=== PATIENT | male | born 1960 | race Caucasian/White ===

== ENCOUNTER 2017-09-11 12:15 | Emergency (ER) | payer BC ==
[~2017-09-11] VITALS: Ht 188 cm; Wt 175.3 kg
[~2017-09-11 12:15] MED LIST: DIOVAN HCT 1601 EAC1 PO; LO-DOSE ASPIRIN81 M2 PO
[2017-09-11 12:54] LABS: BASOPHIL (%) 0.9 % (0-1); BASOPHIL COUNT 0.1 K/uL (0-0.1); EOSINOPHIL (%) 5.7 % (0-5); EOSINOPHIL COUNT 0.6 K/uL (0-0.3); HEMATOCRIT 41.4 % (38.0-50.0); IMMATURE GRANULOCYTE (%) 1.2 % (0.0-0.7); LYMPHOCYTE (%) 18.5 % (15-42); LYMPHOCYTE COUNT 1.9 K/uL (1.0-2.8); MCH 31.6 PG (29.0-34.0); MCHC 33.8 G/DL (30.0-36.0); MCV 93.5 FL (86-99); MONOCYTE (%) 7.8 % (3-12); MONOCYTE COUNT 0.8 K/uL (0-0.8); NEUTROPHIL (%) 65.9 % (45-76); NEUTROPHIL COUNT 6.8 K/uL (1.8-6.4); PLATELET COUNT 216 K/uL (156-360); RBC DIS.WIDTH-CV 13.3 % (11.8-14.6); RBC DIS.WIDTH-SD 45.6 % (39-53); RED BLOOD COUNT 4.43 M/uL (4.00-5.50); WHITE BLOOD COUNT 10.3 K/uL (4.1-10.2)
[2017-09-11 13:15] LABS: TROP-I INTERPRETATION NEGATIVE; TROPONIN-I < 0.01 ng/mL (0.0-0.30)
[2017-09-11 13:21] LABS: CHLORIDE 102 mEq/L (99-109); POTASSIUM 3.7 mEq/L (3.7-5.4); SODIUM 140 mEq/L (136-147)
[2017-09-11 13:23] LABS: GLUCOSE 82 mg/dL (70-99)
[2017-09-11 13:27] LABS: CREATININE 0.8 mg/dL (0.6-1.3); GFR ESTIMATE (CALCULATED) > 59 mL/min/ (58.99-99999)
[2017-09-11 13:28] LABS: UREA NITROGEN (BUN) 13 mg/dL (9-23)
[2017-09-11 15:10] VITALS: BP 168/112
== END 2017-09-11 15:15 | disposition home or self-care (01) ==
LOC: EME 12:15
PROVIDERS: Emergency Medicine
DX: R07.89 Other chest pain (principal); I10 Essential (primary) hypertension; Z79.82 Long term (current) use of aspirin
CPT/HCPCS: 71045; 80048; 84484; 85025; 93005; 99281; 99285

== ENCOUNTER → 2017-10-12 | Outpatient (CLI) | payer BC ==
[~2017-10-12] VITALS: Ht 188 cm; Wt 168.2 kg
[~2017-10-12] MED LIST changes: +VALSARTAN-HCTZ1 EAC2 PO
== END | disposition home or self-care (01) ==
LOC: AMB 11:28
PROC: 0DJD8ZZ Inspection of Lower Intestinal Tract, Via Natural or Artificial Opening Endoscopic (ICD-10-PCS; principal; 2017-10-12)
DX: Z12.11 Encounter for screening for malignant neoplasm of colon (principal); K57.30 Diverticulosis of large intestine without perforation or abscess without bleeding; K64.8 Other hemorrhoids; Z86.010 Personal history of colon polyps; Z80.0 Family history of malignant neoplasm of digestive organs; I10 Essential (primary) hypertension; I48.91 Unspecified atrial fibrillation; M19.90 Unspecified osteoarthritis, unspecified site; Z79.82 Long term (current) use of aspirin; F32.9 Major depressive disorder, single episode, unspecified; F41.9 Anxiety disorder, unspecified